=== PATIENT | female | born 1960 | race Caucasian/White ===

== ENCOUNTER 2021-09-30 14:10 | Emergency (ER) | payer OTHER, SELFPAY ==
[2021-09-30 14:18] VITALS: BP 120/78; PULSE 69; RESP 20; TEMP 37.2; O2SAT 97
--- NOTE | 2021-09-30 14:20 | ED.FEMALEGU ---
HPI - Female Genitourinary General Chief complaint: Urogenital-Female Stated complaint: Urinary Problem Time Seen by Provider: 09/30/21 14:20 Source: patient and RN notes reviewed History of Present Illness HPI Narrative: Patient is 61-year-old female who presents the urgent care with complaints of vaginal itching and dysuria for the last 2 days. Patient denies any vaginal discharge. Patient is not concerned with any STIs. Denies of any abdominal pain, nausea, fever or vomiting. Patient states that she has had a yeast infection in the past but does not have recurrent UTIs. No other acute complaints. No acute distress noted. Patient aware of the plan of care. Some parts of this dictation were generated by voice recognition software and may contain typographical and/or grammatical inaccuracies. Related Data Allergies Allergy/AdvReac Type Severity Reaction Status Date / Time levofloxacin Allergy Unknown Verified 06/04/14 14:47 Sulfa (Sulfonamide Allergy Unknown Verified 06/04/14 14:47 Antibiotics) Review of Systems Review of Systems: CONSTITUTIONAL: Denies fever, chills, or sweats. EYES: Denies visual changes, redness, or discharge. ENT: Denies rhinorrhea, congestion, sore throat, or otalgia. CARDIOVASCULAR: Denies chest pain, palpitations, or edema. RESPIRATORY: Denies cough or dyspnea. GASTROINTESTINAL: Denies abdominal pain, nausea, vomiting, or diarrhea. GENITOURINARY: Reports of vaginal itching and dysuria SKIN: Denies rash or itching. MUSCULOSKELETAL: Denies back pain, joint pain, or myalgia. NEUROLOGIC: Denies headache, numbness, or weakness. All other systems reviewed are negative, except as documented in HPI. PMFSH Comments At the time of my signature, I reviewed and agree with the nursing past medical, surgical, social, and family history. There is no relevant family history pertinent to the patient complaint. Exam Narrative: GENERAL: This is a well-nourished, well-developed patient, in no apparent distress. HEAD: normocephalic, atraumatic. EYES: PERRL. Sclera clear/white. Vision is grossly intact. EARS: External ears normal NOSE: External nose normal with no obvious nasal discharge, nares without redness, no rhinorrhea. THROAT: Mucous membranes moist NECK: Neck supple CARDIOVASCULAR: Regular rate and rhythm without murmurs, gallops, or rubs. RESPIRATORY: Clear to auscultation. Breath sounds equal bilaterally. No wheezes, rales, or rhonchi. GASTROINTESTINAL: Abdomen soft, non-tender, nondistended. Bowel sounds are active. : Deferred exam SKIN: warm, intact with no suspicious lesions or rash, good texture and turgor. NEURO: awake, alert, and oriented to person, place and time. There were no obvious focal neurologic abnormalities. EXTREMITIES: No clubbing, cyanosis, or edema. BACK: Negative bilateral CVA tenderness Course Course Level of Care: Express Care Visit Vital Signs Vital signs: Vital Signs Temperature 99.0 F 09/30/21 14:18 Pulse Rate 69 09/30/21 14:18 Respiratory Rate 20 09/30/21 14:18 Blood Pressure 120/78 09/30/21 14:18 Pulse Oximetry 97 09/30/21 14:18 Oxygen Delivery Room Air 09/30/21 14:18 Temperature 99.0 F 09/30/21 14:18 Pulse Rate 69 09/30/21 14:18 Respiratory Rate 20 09/30/21 14:18 Blood Pressure 120/78 09/30/21 14:18 Pulse Oximetry 97 09/30/21 14:18 Oxygen Delivery Room Air 09/30/21 14:18 Reviewed MDM - Female Genitourinary MDM Narrative Medical decision making narrative: Advised the patient to complete the Diflucan as directed. Take 1 pill now, skip Monday and take a second pill on Monday if symptoms are still present. May also use Monistat [id number]. Make sure to wear nonocclusive clothing and cotton underwear. If you are sweating and your vaginal area, be sure to bring dry close. Do not sit for long periods of time in a bath or wet swimsuit. Follow-up with your PCP or [facility] within 2 to 5 days or for worsening symp
== END 2021-09-30 14:58 | disposition home or self-care (01) ==
PROVIDERS: Emergency Provider Nurse Practitioner Family
DX: R30.0 Dysuria (principal); L29.2 Pruritus vulvae
CPT/HCPCS: 81003; 99213; G0463